=== PATIENT | male | born 1940 | race Caucasian/White ===

== ENCOUNTER 2023-10-19 08:58 | Emergency (ER) | payer MEDICARE, SELFPAY ==
[2023-10-19 09:06] VITALS: BP 173/89; PULSE 104; RESP 16; O2SAT 98
--- NOTE | 2023-10-19 09:09 | ECG_ITS ---
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 Measurements Intervals [place] Rate: 102 P: 48 HI: 140 QRS: -38 QRSD: 92 T: 72 QT: 320 QTc: 418 Interpretive Statements SINUS TACHYCARDIA LEFT AXIS DEVIATION [QRS AXIS < -30] MINIMAL VOLTAGE CRITERIA FOR LVH, CONSIDER NORMAL VARIANT [MEETS CRITERIA IN ONE OF: R(aVL), S(V1), R(V5), R(V5/V6)+S(V1)] No previous ECG available for comparison Electronically Signed On 10-19-2023 20:00:22 CDT by Teresa Candelario M.D. [id number]
[2023-10-19 09:11] VITALS: TEMP 36.8
--- NOTE | 2023-10-19 09:20 | XR_ITS ---
WS: [id number] Portable AP upright chest, 10/19/2023 Clinical Data: dyspnea/cough Comparison: Portable chest, 02/15/2014 Findings: No nodules, masses or effusions are seen. The heart is normal. The pulmonary vascularity is not increased. No pneumonia or pneumothorax is seen. There is minimal scarring adjacent to the left cardiac border and superior to the left diaphragm unchanged. The aortic arch and descending thoracic aorta show tortuosity. Monitor leads are on the chest wall. XR/XR chest 1V portable [id number] Impression: Atherosclerosis.
[2023-10-19 09:29] LABS: Basophils % 0.3 %; Eosinophils % 0.2 %; Hematocrit 46.2 % (37-53); Lymphocytes # 1.8 10^3/uL (0.8-4.8); Lymphocytes % 18.6 %; Mean Corpuscular Hemoglobin 31.6 pg (27-33); Monocytes # 1.6 10^3/uL (0.2-0.9); Monocytes % 16.8 %; Neutrophils # 6.14 10^3/uL (1.8-7.7); Neutrophils % 63.9 %; Nucleated Red Blood Cells % 0 %; Platelet Count 265 10^3/cmm (157-399); Red Blood Count 4.97 10^6/uL (3.85-5.65); White Blood Count 9.62 10^3/uL (3.29-11.43)
--- NOTE | 2023-10-19 09:34 | W.ED.ARRPALP ---
HPI - Arrhythmia/Palpitations General: Chief Complaint: Arrhythmia/Palpitations Stated Complaint: elevated hr, sent by Dr. Berkowitz Time Seen by Provider: 10/19/23 09:05 Source: patient Mode of arrival: ambulatory History of Present Illness: 83-year-old male presents emergency room from primary care doctor's office for reports of tachycardia. He has been very fatigued. He has not taken his medications this morning. He denies shortness of breath no radiation of discomfort into the neck or arms. He has been very fatigued the last couple of weeks. MD complaint: rapid heart beat Review of Systems Const: Denies: fever(s) or chills Card: Denies: chest pain Resp: Denies: dyspnea GI: Denies: abdominal pain : Denies: dysuria, urinary frequency or urinary urgency Musc: Denies: neck pain or back pain Skin/Breast: Denies: rash Physical Exam Const: COMMON NORMALS: no acute distress GENERAL APPEARANCE: cooperative and comfortable ORIENTATION/CONSCIOUSNESS: Yes awake, Yes oriented to person, Yes oriented to place and Yes oriented to time HENMT: COMMON NORMALS: normocephalic, atraumatic and hearing grossly normal bilaterally HEAD & SCALP: normocephalic and atraumatic Resp: COMMON NORMALS: normal respiratory effort, No retractions, No use of accessory muscles and clear to auscultation bilaterally AUSCULTATION: clear to auscultation bilaterally Cardio: COMMON NORMALS: regular rate, regular rhythm and No murmurs present (Cardio) RATE: regular rate RHYTHM: regular rhythm GI: COMMON NORMALS: Soft to palpation and No hepatosplenomegaly present AUSCULTATION: Yes normoactive bowel sounds PALPATION: Yes Soft to palpation, No Tenderness to palpation present (GI), No Guarding due to palpation present (GI) and Yes No hepatosplenomegaly present Extremity: COMMON NORMALS: normal to inspection, capillary refill normal, no clubbing, cyanosis or edema, no calf tenderness and no pedal edema Neuro: SENSORIUM/ORIENTATION: Yes oriented to person, Yes oriented to place and Yes oriented to time Skin: COMMON NORMALS: no rashes or lesions noted GENERAL SKIN EXAM: no rashes or lesions noted Course Vital Signs: Vital signs: Vital Signs Temperature 98.3 F 10/19/23 09:11 Pulse Rate 70 10/19/23 12:06 Respiratory Rate 18 10/19/23 12:06 Blood Pressure 140/69 10/19/23 12:06 Pulse Oximetry 96 10/19/23 12:06 Oxygen Delivery Me thod Room Air 10/19/23 10:33 MDM - Arrhythmia/Palpitations Medical Decision Making Reported of elevated heart rate not significantly elevated on arrival he was in the 80s. Patient had his metoprolol with him he had not taken it this morning we asked him to take the metoprolol cardiac enzymes and EKG did not show any acute changes after time his heart rate was in the 60s and maintained. No further symptoms. Is not having any chest discomfort or shortness of breath will discharge patient home encouraged him to take medications regularly. Also suggested he discuss with his doctor changing to Toprol XL which is less likely to have rebound tachycardia Medical Records I reviewed the patient's medical records. Lab Data I reviewed the patient's lab results. 10/19/23 09:19 10/19/23 09:19 Radiology Impressions Chest X-Ray 10/19/23 09:20 Impression: Atherosclerosis. Laboratory Results WBC 9.62 10^3/uL (3.29-11.43) 10/19/23 09:19 RBC 4.97 10^6/uL (3.85-5.65) 10/19/23 09:19 Hgb 15.70 g/dL (11.27-16.99) 10/19/23 09:19 Hct 46.2 % (37-53) 10/19/23 09:19 MCV 93.0 fl (82-101) 10/19/23 09:19 MCH 31.6 pg (27-33) 10/19/23 09:19 MCHC 34.0 g/dL (30-55) 10/19/23 09:19 RDW 13.0 % (12.1-15.1) 10/19/23 09:19 Plt Count 265 10^3/cmm (157-399) 10/19/23 09:19 MPV 10.0 fL (7.4-10.4) 10/19/23 09:19 Neut % (Auto) 63.9 % 10/19/23 09:19 Lymph % (Auto) 18.6 % 10/19/23 09:19 [place] % (Auto) 16.8 % 10/19/23 09:19 Eos % (Auto) 0.2 % 10/19/23 09:19 Baso % (Auto) 0.3 % 10/19/23 09:19 Neut # (Auto) 6.14 10^3/uL (1.8-7.7) 10/19/23 09:19 Lymph # (Auto) 1.8 10^3/uL (0.8-4.8) 10/19/23 09:19 [place] # (Auto) 1.6 10^3/uL (0.2-0.9) H 10/19/23 09:19 Eos # (Auto) 0.0 10^3/uL (0.0-0.8) 10/19/23 09:19 Baso # (Auto) 0.0 10^3/uL (0.0-0.1) 10/19/23 09:19 Nucleated RBC % (auto) 0 % 10/19/23 09:19 Nucleated RBCs # 0.0 /100WBC 10/19/23 09:19 Sodium 133 mmol/L (136-145) L 10/19/23 09:19 Potassium 3.7 mmol/L (3.5-5.1) 10/19/23 09:19 Chloride 96 mmol/L (98-107) L 10/19/23 09:19 Carbon Dioxide 24 mmol/L (22-29) 10/19/23 09:19 Anion Gap 16.7 (5-19) 10/19/23 09:19 BUN 17 mg/dL (8-23) 10/19/23 09:19 Creatinine 0.9 mg/dL (0.7-1.2) 10/19/23 09:19 GFR Calculation Not Reportable 10/19/23 09:19 Glucose 142 mg/dL (65-115) H 10/19/23 09:19 Calculated Osmolality 280 mOsm/kg (285-295) L 10/19/23 09:19 Lactic Acid 1.4 mmol/L (0.5-2.2) 10/19/23 09:19 Calcium 9.0 mg/dL (8.5-10.5) 10/19/23 09:19 Total Bilirubin 1.2 mg/dL (0.15-1.2) 10/19/23 09:19 AST 74 U/L (0-40) H 10/19/23 09:19 ALT 66 U/L (0-41) H 10/19/23 09:19 Alkaline Phosphatase 84 U/L (40-130) 10/19/23 09:19 Troponin T Baseline 19 ng/L (0-15) H 10/19/23 09:19 Troponin T 120 Minute 18.28 ng/L (0-15) H 10/19/23 11:11 Delta Troponin T -0.72 ABS# (0-10) L 10/19/23 11:11 Total Protein 7.2 g/dL (6.6-8.7) 10/19/23 09:19 Albumin 3.7 g/dL (3.5-5.2) 10/19/23 09: Globulin 3.5 g/dL (1.3-4.6) 10/19/23 09: Lipase 44 U/L (13-60) 10/19/23 09: TSH 1.21 uIU/mL (0.27-4.20) 10/19/23 09: Urine Color Dark yellow (Yellow) 10/19/23 09: Urine Appearance Clear (CLEAR) 10/19/23 09: Urine pH 5 (5-7) 10/19/23 09: Ur Specific [place] 1.025 (1.005-1.030) 10/19/23 09: Urine Protein Trace (Negative) 10/19/23 09: Urine Glucose (UA) Norm (Normal) 10/19/23 09: Urine Ketones 1+ (Negative) H 10/19/23 09: Urine Blood 2+ (Negative) H 10/19/23 09: Urine Nitrate Negative (Negative) 10/19/23 09: Urine Bilirubin 1+ (Negative) H 10/19/23 09: Urine Urobilinogen 1 mg/dL (Negative) H 10/19/23 09: Ur Leukocyte Esterase Trace (Negative) H 10/19/23 09: Urine RBC 0-4 /hpf (0-2) H 10/19/23 09: Urine WBC 5-10 /hpf (0-5) H 10/19/23 09:27 Ur Squamous Epith Cells Rare /hpf (0-5) 10/19/23 09: Amorphous Sediment Not Reportable 05/08/24 09:27 Urine Bacteria Trace /hpf (NONE) 10/19/23 09:27 Hyaline Casts 0-4 /lpf H 10/19/23 09:27 Urine Mucus 3+ /hpf 10/19/23 09:27 Ur Oval Fat Bodies 1+ /hpf 10/19/23 09:27 All radiology interpretation(s) finalized by discharge Discharge Plan Discharge Patient Disposition: Home Clinical Impression: Palpitations, Medication side effects Condition: Stable Prescriptions: No Action amlodipine 10 mg tablet 10 mg PO QAM metoprolol tartrate 50 mg tablet 50 mg PO BID Discharge Orders: Discharge ED (Routine); Ordered 10/19/23 Ordered By: Ronak Palomino Referrals: Td Berkowitz, [Primary Care Provider] - Discharge Diet: Usual diet Discharge Activity: Resume usual activity Patient Instructions: Opioid Safety, Pain Management Activity Restrictions/Additional Instructions: Thank you for choosing [facility] for your healthcare needs today. Please realize this is an emergency room and that we are providing you with a medical screening exam and this may not be complete and all inclusive of all the testing and or work up that you may need to determine your ailment or severity of your illness. It is very important that you follow up as instructed or that you return to the Emergency Department should you have concerns or if your condition changes or worsens in any way. You are seen today with complaint of rapid heart rate. This was a side effect of a late dose of metoprolol. It is not uncommon with metoprolol to have rebound tachycardia if a dose is missed or taken late. You can discuss with your doctor changing to the once daily dosing to simplify your regiment. 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
[2023-10-19 09:46] LABS: Lactic Sepsis W/Reflex 1.4 mmol/L (0.5-2.2)
[2023-10-19 09:57] LABS: Alanine Aminotransferase 66 U/L (0-41); Albumin Level 3.7 g/dL (3.5-5.2); Alkaline Phosphatase 84 U/L (40-130); Anion Gap 16.7 (5-19); Aspartate Amino Transferase 74 U/L (0-40); Blood Urea Nitrogen 17 mg/dL (8-23); Carbon Dioxide 24 mmol/L (22-29); Chloride 96 mmol/L (98-107); Globulin 3.5 g/dL (1.3-4.6); Glucose 142 mg/dL (65-115); Lipase 44 U/L (13-60); Osmolality Calculated 280 mOsm/kg (285-295); Potassium 3.7 mmol/L (3.5-5.1); Sodium 133 mmol/L (136-145); Thyroid Stimulating Hormone 1.21 uIU/mL (0.27-4.20); Total Bilirubin 1.2 mg/dL (0.15-1.2); Total Protein 7.2 g/dL (6.6-8.7)
[2023-10-19 10:04] LABS: Add Urine Microscopic? YES; Bilirubin Urine 1+ (Negative); Blood Urine 2+ (Negative); Glucose Urine UA Norm (Normal); Ketones Urine 1+ (Negative); Leukocyte Esterase Urine Trace (Negative); Nitrate Urine Negative (Negative); Protein Urine Trace (Negative); Specific Gravity, Urine 1.025 (1.005-1.030); Urine Appearance Clear (CLEAR); Urine Color Dark Yellow (Yellow); Urobilinogen Urine 1 mg/dL (Negative); pH Urine 5 (5-7)
[2023-10-19 10:28] LABS: Add Urine Culture? No; Bacteria Urine TRACE /hpf; Hyaline Casts Urine 0-4 /lpf; Mucus Urine 3+ /hpf; Oval Fat Bodies Urine 1+ /hpf; RBC Urine 0-4 /hpf (0-2); Squamous Epithelial Cell Urine RARE /hpf (0-5)
[2023-10-19 10:33] VITALS: BP 144/73; PULSE 90; RESP 20; O2SAT 98
[2023-10-19 11:13] LABS: Troponin(5th) Baseline 19 ng/L (0-15)
[2023-10-19 11:34] LABS: Troponin 5 2HR 18.28 ng/L (0-15)
[2023-10-19 11:35] LABS: Troponin 5 2HR Delta -0.72 ABS# (0-10)
[2023-10-19 12:06] VITALS: BP 140/69; PULSE 70; RESP 18; O2SAT 96
== END 2023-10-19 12:08 | disposition home or self-care (01) ==
PROVIDERS: Emergency Provider Family Medicine; PCP Family Medicine
DX: R00.2 Palpitations (principal); T44.7X5A Adverse effect of beta-adrenoreceptor antagonists, initial encounter
CPT/HCPCS: 36415; 71045; 80053; 81001; 83605; 83690; 84443; 84484; 85025; 87040; 93005; 99285

== ENCOUNTER 2024-08-15 03:07 | Emergency (ER) | payer MEDICARE, SELFPAY ==
[2024-08-15 03:11] VITALS: BP 169/90; PULSE 90; RESP 18; TEMP 36.9; O2SAT 96; BMI 26.6
--- NOTE | 2024-08-15 03:11 | XRR_ITS ---
PROCEDURE INFORMATION: Exam: XR Chest Exam date and time: 08/15/2024 3:20 AM Age: 84 years old Clinical indication: Other: Tachycardia TECHNIQUE: Imaging protocol: Radiologic exam of the chest. Views: 1 view. COMPARISON: CR XR chest 1V portable [id number] 10/19/2023 9:21 AM FINDINGS: Lungs: Unremarkable. No consolidation. Pleural spaces: Unremarkable. No pleural effusion. No pneumothorax. Heart/Mediastinum: Unremarkable. No cardiomegaly. Bones/joints: Unremarkable. XR/XR chest 1V portable [id number] IMPRESSION: No acute findings.
--- NOTE | 2024-08-15 03:12 | ECG_ITS ---
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 Measurements Intervals [place] Rate: 91 P: -12 LA: 179 QRS: 91 QRSD: 113 T: -9 QT: 355 QTc: 437 Interpretive Statements SINUS RHYTHM WITH OCCASIONAL VENTRICULAR PREMATURE COMPLEXES BORDERLINE RIGHT AXIS DEVIATION [QRS AXIS > 90] MODERATE INTRAVENTRICULAR CONDUCTION DELAY [110+ ms QRS DURATION] ABNORMAL QRS-T ANGLE [QRS-T AXIS DIFFERENCE > 60] Compared to ECG 10/19/2023 09:09:34 Ventricular premature complex(es) now present Intraventricular conduction delay now present Sinus tachycardia no longer present Left-axis deviation no longer present Electronically Signed On 08-18-2024 18:10:07 HAND II TUBE BENDER by Jeyson Ramsey M.D. [email or web address] [id number]
--- NOTE | 2024-08-15 03:33 | ED_ITS ---
HPI - General Adult 2 General: Chief complaint: General Medical Stated complaint: Heart Beating Fast Time Seen by Provider: 08/15/24 03:10 History of Present Illness: Patient presents to the ER with complaints that his heart is beating too fast. He says he is said they are trying to go to sleep and is hard to his family because cannot pound out of his chest he did not actually take his pulse he just said it felt fast. Patient also says he has nervous problems and this happens intermittently. Patient denies any chest pain shortness of breath diaphoresis. Patient is on metoprolol 50 mg twice daily and took an extra 1/2 pill prior to arrival. Related Data Home Medications ?Medication ?Instructions ?Recorded ?Confirmed amlodipine 10 mg tablet 10 mg PO QAM 10/19/23 metoprolol tartrate 50 mg tablet 50 mg PO BID 10/19/23 10/19/23 Allergies Allergy/AdvReac Type Severity Reaction Status Date / Time No Known Allergies Allergy Verified 08/15/24 03:14 Review of Systems 2 General: Reports: 10 or more systems reviewed and unremarkable except in HPI and below Physical Exam 2 Const: COMMON NORMALS: no acute distress, average body habitus, patient oriented x3, no limitations, healthy appearing, alert and well nourished HENMT: COMMON NORMALS: normocephalic, atraumatic, hearing grossly normal bilaterally, external ears normal, Normal external nose present, moist oral mucous membranes and oropharynx normal HEAD & SCALP: normocephalic and atraumatic NOSE: Normal external nose present EXTERNAL EAR: Yes external ears normal Neck/C-Spine: COMMON NORMALS: no JVD Chest: COMMONS NORMALS: normal inspection of the chest and normal palpation of entire chest wall Resp: COMMON NORMALS: normal respiratory effort, No retractions, No use of accessory muscles and clear to auscultation bilaterally AUSCULTATION: clear to auscultation bilaterally Cardio: COMMON NORMALS: no JVD, regular rate, regular rhythm, S1 normal heart sound present, S2 normal heart sound present, No gallops present (Cardio), No clicks present (Cardio), No murmurs present (Cardio) and No rub (Cardio) R ATE: regular rate RHYTHM: regular rhythm HEART SOUNDS: S1 normal heart sound present and S2 normal heart sound present GI: COMMON NORMALS: Normal to inspection, nondistended, normoactive bowel sounds present, Soft to palpation, non-tender, No hepatosplenomegaly present and no masses PALPATION: Yes Soft to palpation and Yes No hepatosplenomegaly present Neuro: COMMON NORMALS: patient oriented x3 SENSORIUM/ORIENTATION: Yes alert Course 2 Vital Signs: Vital signs: Vital Signs Temperature 98.5 F 08/15/24 03:11 Pulse Rate 90 08/15/24 03:11 Respiratory Rate 18 08/15/24 03:11 Blood Pressure 169/90 08/15/24 03:11 Pulse Oximetry 96 08/15/24 03:11 Oxygen Delivery Me thod Room Air 08/15/24 03:11 MDM - General Adult Medical Decision Making Patient had negative workup. Patient says feeling much better. Patient be discharged home. Medical Records I reviewed the patient's medical records. Lab Data I reviewed the patient's lab results. 08/15/24 03:30 08/15/24 03:30 Radiology Impressions Chest X-Ray 08/15/24 03:11 IMPRESSION: No acute findings. Laboratory Results WBC 11.45 10^3/uL (3.29-11.43) H 08/15/24 03:30 RBC 4.80 10^6/uL (3.85-5.65) 08/15/24 03:30 Hgb 15.20 g/dL (11.27-16.99) 08/15/24 03:30 Hct 45.4 % (37-53) 08/15/24 03:30 MCV 94.6 fl (82-101) 08/15/24 03:30 MCH 31.7 pg (27-33) 08/15/24 03:30 MCHC 33.5 g/dL (30-55) 08/15/24 03:30 RDW 12.9 % (12.1-15.1) 08/15/24 03:30 Plt Count 323 10^3/cmm (157-399) 08/15/24 03:30 MPV 10.3 fL (7.4-10.4) 08/15/24 03:30 Neut % (Auto) 54.6 % 08/15/24 03:30 Lymph % (Auto) 31.0 % 08/15/24 03:30 [place] % (Auto) 10.2 % 08/15/24 03:30 Eos % (Auto) 3.3 % 08/15/24 03:30 Baso % (Auto) 0.6 % 08/15/24 03:30 Neut # (Auto) 6.24 10^3/uL (1.8-7.7) 08/15/24 03:30 Lymph # (Auto) 3.6 10^3/uL (0.8-4.8) 08/15/24 03:30 [place] # (Auto) 1.2 10^3/uL (0.2-0.9) H 08/15/24 03:30 Eos # (Auto) 0.4 10^3/uL (0.0-0.8) 08/15/24 03:30 Baso # (Auto) 0.1 10^3/uL (0.0-0.1) 08/15/24 03:30 Nucleated RBC % (auto) 0 % 08/15/24 03:30 Nucleated RBCs # 0.0 /100WBC 08/15/24 03:30 Sodium 141 mmol/L (136-145) 08/15/24 03:30 Potassium 4.0 mmol/L (3.5-5.1) 08/15/24 03:30 Chloride 106 mmol/L (98-107) 08/15/24 03:30 Carbon Dioxide 23 mmol/L (22-29) 08/15/24 03:30 Anion Gap 16.0 (5-19) 08/15/24 03:30 BUN 24 mg/dL (8-23) H 08/15/24 03:30 Creatinine 1.1 mg/dL (0.7-1.2) 08/15/24 03:30 GFR Calculation Not Reportable 08/15/24 03:30 Glucose 115 mg/dL (65-115) 08/15/24 03:30 Calculated Osmolality 297 mOsm/kg (285-295) H 08/15/24 03:30 Calcium 9.0 mg/dL (8.5-10.5) 08/15/24 03:30 Magnesium 2.0 mg/dL (1.7-2.3) 08/15/24 03:30 Total Bilirubin 0.6 mg/dL (0.15-1.2) 08/15/24 03:30 AST 30 U/L (0-40) 08/15/24 03:30 ALT 20 U/L (0-41) 08/15/24 03:30 Alkaline Phosphatase 110 U/L (40-130) 08/15/24 03:30 Troponin T Baseline 14 ng/L (0-15) 08/15/24 03:30 Total Protein 7.2 g/dL (6.6-8.7) 08/15/24 03:30 Albumin 4.0 g/dL (3.5-5.2) 08/15/24 03:30 Globulin 3.2 g/dL (1.3-4.6) 08/15/24 03:30 All radiology interpretation(s) finalized by discharge Discharge Plan Discharge Patient Disposition: Home Clinical Impression: Tachycardia, unspecified, Anxiety Condition: Stable Prescriptions: No Action amlodipine 10 mg tablet 10 mg PO QAM metoprolol tartrate 50 mg tablet 50 mg PO BID Discharge Orders: Discharge ED (Routine); Ordered 08/15/24 Ordered By: Zachary Childs Referrals: Td Berkowitz, [Primary Care Provider] - 1 week Patient Instructions: Tachycardia (ED), Anxiety (ED) Activity Restrictions/Additional Instructions: Activity restrictions/additional instructions: Thank you for choosing [facility] for your healthcare needs today. Please realize that you were seen in the emergency department and that we are providing you with an emergency medical screening exam and this may not be a complete and all exclusive of all testing and/or medical workup we may need to determine your element or severity of your illness. It is very important that you follow-up as instructed with your primary care provider or specialist for the additional evaluation and to discuss your medical treatment plan. You may return to the emergency department should you have concerns or if your condition changes or worsens in any way. Print Language: Taiwanese Coding Level of Care Code ED Waiter/Waitress Counter for Denisse Albert
[2024-08-15 03:37] LABS: Basophils # 0.1 10^3/uL (0.0-0.1); Basophils % 0.6 %; Eosinophils # 0.4 10^3/uL (0.0-0.8); Eosinophils % 3.3 %; Hematocrit 45.4 % (37-53); Lymphocytes # 3.6 10^3/uL (0.8-4.8); Mean Corpuscular HGB Conc 33.5 g/dL (30-55); Mean Corpuscular Hemoglobin 31.7 pg (27-33); Mean Corpuscular Volume 94.6 fl (82-101); Mean Platelet Volume 10.3 fL (7.4-10.4); Monocytes # 1.2 10^3/uL (0.2-0.9); Monocytes % 10.2 %; Neutrophils # 6.24 10^3/uL (1.8-7.7); Neutrophils % 54.6 %; Nucleated Red Blood Cells % 0 %; Platelet Count 323 10^3/cmm (157-399); Red Cell Distribution Width 12.9 % (12.1-15.1); White Blood Count 11.45 10^3/uL (3.29-11.43)
[2024-08-15 03:57] LABS: Troponin(5th) Baseline 14 ng/L (0-15)
[2024-08-15 03:59] LABS: Alanine Aminotransferase 20 U/L (0-41); Alkaline Phosphatase 110 U/L (40-130); Aspartate Amino Transferase 30 U/L (0-40); Blood Urea Nitrogen 24 mg/dL (8-23); Carbon Dioxide 23 mmol/L (22-29); Chloride 106 mmol/L (98-107); Creatinine Clr Calc Pharmacy 54.9819; Globulin 3.2 g/dL (1.3-4.6); Glucose 115 mg/dL (65-115); Osmolality Calculated 297 mOsm/kg (285-295); Sodium 141 mmol/L (136-145); Total Bilirubin 0.6 mg/dL (0.15-1.2); Total Protein 7.2 g/dL (6.6-8.7)
[2024-08-15 04:14] VITALS: BP 139/76; PULSE 77; RESP 15; O2SAT 92
[2024-08-15 05:49] VITALS: BP 141/74; PULSE 77; RESP 16; O2SAT 93
== END 2024-08-15 04:41 | disposition home or self-care (01) ==
PROVIDERS: Emergency Provider Emergency Medicine; PCP Family Medicine
DX: R00.0 Tachycardia, unspecified (principal); F41.9 Anxiety disorder, unspecified
CPT/HCPCS: 71045; 80053; 83735; 84484; 85025; 93005; 99285

== ENCOUNTER 2025-03-25 14:13 | Outpatient (CLI) | payer MEDICARE, SELFPAY | END 2025-03-25 14:14 | disposition home or self-care (01) | LOC: RAD 03-27 14:16 | PROVIDERS: PCP Family Medicine; Visit Provider Family Medicine | DX: R10.12 Left upper quadrant pain (principal); I77.819 Aortic ectasia, unspecified site; R93.89 Abnormal findings on diagnostic imaging of other specified body structures; M47.894 Other spondylosis, thoracic region | CPT/HCPCS: 71046 ==